=== PATIENT | female | born 1970 | race African-American/Black ===

== ENCOUNTER 2016-03-31 18:39 | Emergency (ER) | payer BC ==
[~2016-03-31] VITALS: Ht 170.2 cm; Wt 65.9 kg
[~2016-03-31 18:39] MED LIST: ASPIRIN 81M81 MG/TA2; CARAFATE S1 GM/10 ML PO; FERROUS SULFATE27 MG PO; FOLIC ACID0.4 MG PO; MULTIVITAMIN FO1 CAP PO
[2016-03-31 19:22] LABS: BASO % 0.2 % (0.0-2.0); EOS % 0.8 % (0-4.0); GRAN # 3.9 (1.4-6.5); LYMPH # 0.4 (1.2-3.4); LYMPH % 7.8 % (20.0-51.0); MEAN CELL VOLUME 89 fl (80.0-100.0); MEAN CORPUSCULAR HGB CONC 33 g/dl (33.0-37.0); MEAN PLATELET VOLUME 13.3 fl (7.4-10.4); MONO # 0.8 (0.1-0.6); RED BLOOD COUNT 3.81 M/mm3 (4.10-5.30); REDCELL DISTRIBUTION WIDTH-CV 15.2 % (11.5-14.5); WHITE BLOOD COUNT 5.2 K/mm3 (4.8-10.8)
[2016-03-31 19:27] LABS: HEMATOCRIT 33.8 % (37.0-47.0); HEMOGLOBIN 11.2 g/dl (12.5-16.0); MEAN CORPUSCULAR HEMOGLOBIN 29 pg (27.0-31.0); PLATELET COUNT 54 K/mm3 (130-400)
[2016-03-31 19:45] LABS: TROPONIN-I < 0.012 ng/mL (0.000-0.034)
[2016-03-31 20:03] LABS: THYROID STIMULATING HORMONE 0.488 uIU/mL (0.465-4.680)
[2016-03-31 20:18] LABS: PH 6 (5-8); SQUAMOUS EPITHELIAL 0-2 /hpf; URINE APPEARANCE Clear; URINE BACTERIA None Seen /hpf; URINE BILIRUBIN Negative (NEGATIVE); URINE BLOOD Negative (NEGATIVE); URINE COLOR Colorless; URINE GLUCOSE Negative (NEGATIVE); URINE KETONE Negative (NEGATIVE); URINE RBC 0-2 /hpf; URINE UROBILINOGEN Negative (NEGATIVE); URINE WBC 0-2 /hpf
[2016-03-31 21:35] VITALS: BP 94/74; PULSE 86; TEMP 98.2
== END 2016-03-31 21:36 | disposition home or self-care (01) ==
LOC: COL.ER 18:39
PROVIDERS: Emergency Medicine
DX: J20.9 Acute bronchitis, unspecified (principal); J11.1 Influenza due to unidentified influenza virus with other respiratory manifestations; R00.2 Palpitations; R94.31 Abnormal electrocardiogram [ECG] [EKG]; D69.6 Thrombocytopenia, unspecified
CPT/HCPCS: J1885; J7030; J8540

== ENCOUNTER → 2016-05-25 | Outpatient (CLI) | payer BC | LOC: MC.RAD 07:30 | DX: R92.2 Inconclusive mammogram (principal) ==

== ENCOUNTER → 2016-05-29 | Outpatient (CLI) | payer BC | LOC: MC.RAD 10:00 | DX: D24.2 Benign neoplasm of left breast (principal) ==